=== PATIENT | male | born 1990 | race Caucasian/White ===

== ENCOUNTER 2020-04-15 19:31 | Emergency (ER) | payer SELFPAY ==
[~2020-04-15] VITALS: Ht 175.3 cm; Wt 70.5 kg
[2020-04-15] MEDS ORDERED: LIDOCAINE 1% 10 ML VIAL INJ ONE (20:15)
[2020-04-15] MEDS ORDERED: BACITRACIN 0.9 GM PACKET OINTMENT TP ONE (20:15)
[2020-04-15] MEDS ORDERED: PERTUSS(ACELL),DIPH,TET VAC/PF 0.5 ML VIAL IM ONE (20:30)
[2020-04-15 21:43] VITALS: BP 126/73
== END 2020-04-15 22:00 | disposition home or self-care (01) ==
LOC: EMS 19:31 → EDBD 19:31 → EMS 22:00
DX: S62.635B Displaced fracture of distal phalanx of left ring finger, initial encounter for open fracture (principal); F17.210 Nicotine dependence, cigarettes, uncomplicated; W45.8XXA Other foreign body or object entering through skin, initial encounter; Y93.89 Activity, other specified; Y92.89 Other specified places as the place of occurrence of the external cause; Y99.8 Other external cause status
CPT/HCPCS: 12002; 73130; 90471; 90715; 99283; J3490